=== PATIENT | female | born 1985 | race Caucasian/White ===

== ENCOUNTER 2020-05-16 10:33 | Emergency (ER) | payer OTHER, SELFPAY ==
--- NOTE | ~2020-05-16 | XR_ITS ---
EXAMINATION: XR hand RT min 3V EXAM DATE: 05/16/2020 11:06 INDICATION: right hand pain, injured while boxing for several months . TECHNIQUE: Right hand frontal, lateral and oblique projections obtained and reviewed. Correlation is made to contralateral hand same date. FINDINGS: Right metacarpal bones are unremarkable. There are no acute or subacute right hand fractur es or dislocations identified. There is no subcutaneous gas. The soft tissue is unremarkable. The re are no radiopaque foreign bodies. IMPRESSION: 1. Unremarkable right hand exam. Reviewed, dictated and finalized at location B. H MAKER
--- NOTE | ~2020-05-16 | XR_ITS ---
EXAMINATION: XR hand LT min 3V DATE: 05/16/2020 11:05 INDICATION: Left hand pain at the third metacarpal post boxing injury TECHNIQUE: Posteroanterior, oblique and lateral views of the left hand were obtained. COMPARISON: None. FINDINGS: Alignment is normal. No fracture. Joint spaces are normal. Soft tissues are unremarkable. IMPRESSION: 1. Negative left hand radiographs. Reviewed, dictated and finalized at location A. ER [employer] REPA[employer]ER
--- NOTE | 2020-05-16 10:45 | ED.GENADULT ---
HPI - General Adult General Chief complaint: Extremity Injury, Upper Stated complaint: hand fracture Time Seen by Provider: 05/16/20 10:45 Source: patient Mode of arrival: ambulatory Limitations: no limitations History of Present Illness HPI narrative: 34-year-old female patient presents to the [facility] with complaints of right hand pain x2 months. 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 Patient states that she gave it about 3 weeks off and started going back to class this past Thursday. Patient states it was really sore after class once come and get it checked out. Patient states she will use ice for her pain denies any Tylenol or ibuprofen. Patient states on Thursday it did swell up after class. Patient states mostly the pain is over the middle MIP joints on the right hand and the middle MIP joint on the left hand. Related Data Home Medications Medication Instructions Recorded Confirmed No Home Medications 05/16/20 05/16/20 Allergies Allergy/AdvReac Type Severity Reaction Status Date / Time No Known Allergies Allergy Verified 05/16/20 10:56 Review of Systems Review of Systems: Narrative: CONSTITUTIONAL: Denies fever, chills, or sweats. EYES: Denies visual changes, redness, or discharge. ENT: Denies rhinorrhea, congestion, sore throat, or otalgia. CARDIOVASCULAR: Denies chest pain, palpitations, or edema. RESPIRATORY: Denies cough or dyspnea. GASTROINTESTINAL: Denies abdominal pain, nausea, vomiting, or diarrhea. GENITOURINARY: Denies dysuria or hematuria. SKIN: Denies rash or itching. MUSCULOSKELETAL: Denies back pain, joint pain, or myalgia. Positive right hand pain and left hand pain x2 months NEUROLOGIC: Denies headache, numbness, or weakness. PSYCHIATRIC: Denies anxiety or depression. PMFSH Social History Social History Gender identity (if verbalized by the patient): Female Comments At the time of my signature I agree with nursing past medical history, surgical, social, and family history. There is no relevant family history pertinent to the presenting complaint. Exam Narrative: Exam Narrative: GENERAL: Well-appearing, well-nourished, and in no acute distress. HEAD: Normocephalic, atraumatic. EYES: PERRLA and EOMI. ENT: Nares clear, no rhinorrhea or epistaxis. Mucous membranes moist. NECK: Supple. No lymphadenopathy CHEST: Clear to auscultation. No respiratory distress. HEART: Regular rate and rhythm. No murmur heard. Normal peripheral pulses. ABDOMEN: Soft, nontender, nondistended, normal active bowel sounds. EXTREMITIES: The R and L hand is without obvious asymmetry or deformity when compared to the right and L hand. No swelling, erythema, atrophy, or obvious deformity. Patient does have some obvious prominence middle MIP joints. No surface trauma, open wounds, nail avulsion, tissue avulsion, partial or complete amputation, subungual hematoma, bony deformity. Normal cascade of fingers. Normal flexion and extension of fingers. FDS and FDP intact aganist restistance. No focal fullness, thobbing pain, swelling of fingertip. tenderness to palpation to the middle MIP joints to the right hand and a little bit to the left here.. Pulses and cap refill. SKIN: Warm, dry, no rash. NEURO: No focal deficits. Alert and oriented x3. Course Reevaluation(s) Reevaluation #1: Reevaluated patient after x-rays had resulted. Notified her that there was no fractures or hairline fractures noted on the x-ray report. Discussed with patient that I would highly recommend padding her boxing gloves a little bit more to help with that prominent knuckle that has been sore. Also encouraged her to ice it after exercising and may take Tylenol and ibuprofen as needed for the pain. Patient verbalized understanding denies any other questions or concerns at this time. Date: 05/16/20 Time: 11:16 Vital Signs Vital signs: Vital Signs Temperature 36
[2020-05-16 10:50] VITALS: BP 131/77; PULSE 69; RESP 20; TEMP 36.9; O2SAT 100
== END 2020-05-16 11:25 | disposition home or self-care (01) ==
PROVIDERS: Emergency Provider Nurse Practitioner Family
DX: S63.91XA Sprain of unspecified part of right wrist and hand, initial encounter (principal); S66.911A Strain of unspecified muscle, fascia and tendon at wrist and hand level, right hand, initial encounter; X58.XXXA Exposure to other specified factors, initial encounter; Y93.71 Activity, boxing; S63.92XA Sprain of unspecified part of left wrist and hand, initial encounter; S66.912A Strain of unspecified muscle, fascia and tendon at wrist and hand level, left hand, initial encounter
CPT/HCPCS: 73130; 99204; G0463